=== PATIENT | female | born 1980 | race Caucasian/White ===

== ENCOUNTER 2018-07-06 08:55 | Emergency (ER) | payer MEDICAID ==
[~2018-07-06] VITALS: Ht 160 cm; Wt 57.3 kg
[2018-07-06 09:06] VITALS: Ht 160 cm; Wt 57.3 kg
[2018-07-06 09:40] LABS: microscopic required? NO
[2018-07-06 09:55] LABS: CALCIUM 9.2 mg/dL (8.5-10.1); CARBON DIOXIDE 31.4 mmol/L (21-32); CHLORIDE SERUM 103 mmol/L (98-107); CREATININE SERUM 0.5 mg/dL (0.6-1.0); GFR1 > 60 mL/min; GLUCOSE SERUM 154 mg/dL (74-106); POTASSIUM SERUM 3.5 mmol/L (3.5-5.1); SODIUM SERUM 138 mmol/L (136-145)
[2018-07-06 09:59] LABS: ALBUMIN 3.8 g/dL (3.4-5.0); ALKALINE PHOSPHATASE 60 U/L (46-116); ALT/SGPT 23 U/L (14-59); AST/SGOT 13 U/L (15-37); BILIRUBIN TOTAL 0.3 mg/dL (0.20-1.00); MAGNESIUM 1.8 mg/dL (1.8-2.4); TOTAL PROTEIN, SERUM 7.6 g/dL (6.4-8.2)
[2018-07-06 10:06] LABS: urine erythrocyte NEGATIVE (NEGATIVE)
[2018-07-06 10:11] LABS: BASOPHIL % 0.5 % (0-2); PLATELET COUNT 247 x10^3mcL (130-400); RED CELL DISTRIBUTION WIDTH 14.6 % (11.5-14.5)
[2018-07-06 11:00] VITALS: BP 108/62
== END 2018-07-06 11:00 | disposition home or self-care (01) ==
LOC: ED 08:55
PROVIDERS: Emergency Medicine
DX: R42 Dizziness and giddiness (principal); D64.9 Anemia, unspecified; Q04.3 Other reduction deformities of brain; Z98.890 Other specified postprocedural states
CPT/HCPCS: 82962; J2550; J7030; J8597

== ENCOUNTER 2018-07-27 09:53 | Emergency (ER) | payer MEDICAID ==
[~2018-07-27] VITALS: Ht 154.9 cm; Wt 56.7 kg
[2018-07-27 10:00] VITALS: Ht 154.9 cm; Wt 56.7 kg
[2018-07-27 10:57] LABS: BASOPHIL % 0.3 % (0-2); PLATELET COUNT 261 x10^3mcL (130-400)
[2018-07-27 10:58] LABS: RED CELL DISTRIBUTION WIDTH 18.7 % (11.5-14.5)
[2018-07-27 10:59] LABS: CALCIUM 8.8 mg/dL (8.5-10.1); CARBON DIOXIDE 28.2 mmol/L (21-32); CHLORIDE SERUM 109 mmol/L (98-107); CREATININE SERUM 0.5 mg/dL (0.6-1.0); GFR1 > 60 mL/min; GLUCOSE SERUM 134 mg/dL (74-106); POTASSIUM SERUM 3.7 mmol/L (3.5-5.1); SODIUM SERUM 144 mmol/L (136-145)
[2018-07-27 11:02] LABS: ALBUMIN 3.8 g/dL (3.4-5.0); ALKALINE PHOSPHATASE 60 U/L (46-116); ALT/SGPT 29 U/L (14-59); AST/SGOT 13 U/L (15-37); BILIRUBIN TOTAL 0.27 mg/dL (0.20-1.00); TOTAL PROTEIN, SERUM 7.6 g/dL (6.4-8.2)
[2018-07-27 12:35] VITALS: BP 117/85
[2018-07-27 13:02] LABS: AMPHETAMINE QUAL UR NONE DETECTED (See below)
== END 2018-07-27 12:35 | disposition home or self-care (01) ==
LOC: ED 09:53
PROVIDERS: Emergency Medicine
DX: B69.0 Cysticercosis of central nervous system (principal)
CPT/HCPCS: 83880; 85378; J1885; J2405; J8597

== ENCOUNTER 2020-10-13 16:54 | Emergency (ER) | payer MEDICAID ==
[~2020-10-13] VITALS: Ht 157.5 cm; Wt 59.0 kg
[2020-10-13 17:09] VITALS: BP 138/80; Ht 157.5 cm; Wt 59.0 kg
== END 2020-10-13 17:53 | disposition home or self-care (01) ==
LOC: ED 16:54
DX: N39.0 Urinary tract infection, site not specified (principal)
CPT/HCPCS: J0696; J1885